=== PATIENT | female | born 1965 | race Caucasian/White ===

== ENCOUNTER → 2017-06-06 20:50 | Outpatient (CLI) | payer OTHER ==
[2017-06-08 06:16] LABS: FOLLICLE STIMULATING HORMONE 11.5 mIU/mL (()); LUTEINIZING HORMONE 5.7 mIU/mL (())
== END | disposition home or self-care (01) ==
LOC: D.LABREF 20:50
PROVIDERS: Family Medicine
DX: Z12.4 Encounter for screening for malignant neoplasm of cervix (principal); N92.5 Other specified irregular menstruation

== ENCOUNTER → 2017-07-14 18:52 | Outpatient (CLI) | payer OTHER | END | disposition home or self-care (01) | LOC: D.MAMMO 06-28 09:00 | DX: Z12.31 Encounter for screening mammogram for malignant neoplasm of breast (principal) ==

== ENCOUNTER → 2018-07-12 15:55 | Outpatient (CLI) | payer OTHER ==
[2018-07-15 14:11] LABS: PROTEIN S - FREE 116 % (57-157); PROTEIN S - FUNCTIONAL 99 % (63-140); PROTEIN S - TOTAL 91 % (60-150)
[2018-07-17 03:06] LABS: PROTEIN C - ANTIGEN 136 % (60-150); PROTEIN C - FUNCTIONAL 159 % (73-180)
== END | disposition home or self-care (01) ==
LOC: D.US 07-10 16:00
PROVIDERS: Family Medicine
DX: R10.9 Unspecified abdominal pain (principal); Z86.718 Personal history of other venous thrombosis and embolism

== ENCOUNTER 2019-04-03 08:00 | Outpatient (CLI) | payer OTHER | END 2019-04-03 09:00 | disposition home or self-care (01) | LOC: D.MAMMO 08:00 | PROVIDERS: ATTEND Family Medicine | DX: Z12.31 Encounter for screening mammogram for malignant neoplasm of breast (principal) ==